=== PATIENT | male | born 1945 | race Caucasian/White ===

== ENCOUNTER 2016-12-31 10:46 | Observation (INO) | payer MEDICARE, OTHER ==
[2016-12-31] MEDS ORDERED: NITROGLYCERIN OINT 1 INCH/GM PACKET TOPICAL STA (11:14)
[2016-12-31] MEDS ORDERED: SODIUM CHLORIDE 0.9% 1,000 ML IV STA (11:14)
[2016-12-31] MEDS ORDERED: MORPHINE SULFATE 2 MG/ML SYRINGE IVP STA (11:14)
[2016-12-31 11:34] LABS: Basophils % (A) 0 %; CH 32.8; CHCM 34.4; Eosinophils # (A) 0.2 k/uL (0-0.7); Eosinophils % (A) 2 %; HCT 46.6 % (39.0-53.0); HDW 2.39; HGB 15.7 gm/dL (13.0-17.5); Luc # (Auto) 0.18; Luc % (Auto) 2; Lymphocytes # (A) 1.6 k/uL (1.0-4.8); Lymphocytes % (A) 16 %; MCH 32.2 pg (25.0-35.0); MCHC 33.6 g/dL (31.0-37.0); MCV 95.9 fL (80.0-100.0); Mean Platelet Volume 7.1; Monocytes # (A) 0.7 k/uL (0-1.0); Monocytes % (A) 7 %; Neutrophils # (A) 7.3 k/uL (1.3-7.7); Neutrophils % (A) 73 %; RBC 4.86 m/uL (4.30-5.90); RDW 12.7 % (11.5-15.5); WBC 10.1 k/uL (3.8-10.6); WBC (Perox) 10.22
[2016-12-31 11:42] LABS: ALT 62 U/L (21-72); AST 41 U/L (17-59); Alkaline Phosphatase 85 U/L (38-126); Anion Gap 10 mmol/L; Blood Urea Nitrogen 12 mg/dL (9-20); Calcium 9.3 mg/dL (8.4-10.2); Carbon Dioxide 25 mmol/L (22-30); Chloride 107 mmol/L (98-107); Glucose 85 mg/dL (74-99); Magnesium 1.9 mg/dL (1.6-2.3); Non-African American GFR(MDRD) >60 (>60 ml/min/1.73 sqM); Potassium 4.4 mmol/L (3.5-5.1); Sodium 142 mmol/L (137-145); Total Bilirubin 0.8 mg/dL (0.2-1.3); Total Protein 7.3 g/dL (6.3-8.2)
[2016-12-31 11:58] LABS: Creatine Kinase 141 U/L (55-170)
--- NOTE | 2016-12-31 11:58 | XR ---
EXAMINATION TYPE: XR chest 2V DATE OF EXAM: 12/31/2016 11:51 AM COMPARISON: Chest x-ray August 31, 2012 HISTORY: Chest pain after splitting wood injury. TECHNIQUE: Frontal and lateral views of the chest are obtained. FINDINGS: There is no focal air space opacity, pleural effusion, or pneumothorax seen. The cardiac silhouette size is within normal limits. Old fracture right lateral sixth rib is noted. IMPRESSION: No acute cardiopulmonary process.
[2016-12-31 12:11] LABS: Creatine Kinase MB 0.5 ng/mL (0.0-2.4); Troponin I <0.012 ng/mL (0.000-0.034)
[2016-12-31 12:48] LABS: INR 1.1 (<1.1)
[2016-12-31 12:49] LABS: Partial Thromboplastin Time 22.1 sec (22.0-30.0); Prothrombin Time 10.8 sec (9.0-12.0)
[2016-12-31] MEDS ORDERED: HEPARIN SODIUM,PORCINE 5,000 UNIT/ML 1 ML VIAL IV ONE (13:03)
[2016-12-31] MEDS ORDERED: MORPHINE SULFATE 2 MG/ML SYRINGE IVP PRN (13:03)
[2016-12-31] MEDS ORDERED: NITROGLYCERIN SL TABS 0.4 MG TAB SUBLINGUAL PRN (13:03)
--- NOTE | 2016-12-31 13:03 | ED ---
Chest Pain HPI - General Chief Complaint: Chest Pain Stated Complaint: Chest Pain Time Seen by Provider: 12/31/16 10:54 Source: patient, EMS Mode of arrival: EMS Limitations: no limitations - History of Present Illness Initial Comments: He was splitting some board today this morning, he felt some chest pain, it lasted for about 1 hour he took an aspirin and then took his pain away then. Then the pain returned half an hour later and he called the ambulance and ambulance [place] some nitro paste and that relieved the pain. He is chest pain -free now he has no history of heart disease in the past no chest pain or shortness of breath no pleuritic chest pain no fever no chills he is not bringing up any phlegm he does have a bit of a dry cough since [place] - Related Data Home Medications Medication Instructions Recorded Confirmed Ibuprofen [Advil] 200 mg PO HS 12/31/16 12/31/16 Loratadine [Claritin] 10 mg PO DAILY PRN 12/31/16 12/31/16 Allergies Allergy/AdvReac Type Severity Reaction Status Date / Time No Known Allergies Allergy Verified 12/31/16 11:26 Review of Systems ROS Statement: Those systems with pertinent positive or pertinent negative responses have been documented in the HPI. ROS Other: All systems not noted in ROS Statement are negative. EKG Findings - EKG Comments: EKG Findings:: EKG is normal sinus rhythm ventricular rate is 72 NM interval is 162 QRS duration is 108 QT/QTc is 380/418, review of this EKG does not show any ST elevation or ST depression Past Medical History Past Medical History: No Reported History History of Any Multi-Drug Resistant Organisms: None Reported Past Surgical History: Adenoidectomy, Joint Replacement, Orthopedic Surgery, Tonsillectomy Past Psychological History: No Psychological Hx Reported Smoking Status: Former smoker Past Alcohol Use History: None Reported Past Drug Use History: None Reported General Exam - General Exam Comments Initial Comments: General: The patient is awake and alert, in no distress, and does not appear acutely ill. Skin: Skin is warm and dry and no rashes or lesions are noted. Eye: Pupils are equal, round and reactive to light, extra-ocular movements are intact; there is normal conjunctiva bilaterally. Ears, nose, mouth and throat: There are moist mucous membranes and no oral lesions. Neck: The neck is supple, there is no tenderness or JVD. Cardiovascular: There is a regular rate and rhythm. No murmur, rub or gallop is appreciated. Respiratory: To auscultation bilateral, no wheezing no rhonchi no distress respiratory wilkinson noticed Gastrointestinal: Soft, non-distended, non-tender abdomen without masses or organomegaly noted. There is no rebound or guarding present. Bowel sounds are unremarkable. Back: There is no tenderness to palpation in the midline. There is no obvious deformity. Musculoskeletal: Normal ROM, no tenderness, There is no pedal edema. There is no calf tenderness or swelling. No cords were appreciated. Neurological: CN II-XII intact, Cranial nerves III through XII are intact. There are no obvious motor or sensory deficits. Coordination appears grossly intact. Speech is normal. Psychiatric: Cooperative, appropriate mood & affect, normal judgment. Limitations: no limitations Course Vital Signs 12/31/16 12/31/16 11:06 11:42 Temperature 98.1 F Pulse Rate 74 70 Respiratory 18 16 Rate Blood Pressure 108/68 110/69 O2 Sat by Pulse 98 Oximetry Critical Care Time Total Critical Care Time: 35 Critical Care Time: Chest pain now with exertion, chest pain got his old with fasting and aspirin but then chest pain return after he has no history of heart disease he seems like angina which turning to unstable angina and heparinize him and observe him for 24 hours and consult cardiology he be given some morphine some aspirin and some nitro may be heparinized in for further evaluation cardiology will see him Disposition Clinical Impression: Chest pain, Angina at rest Disposition: ADMITTED IP TO THIS HOSP Condition: Fair
[2016-12-31] MEDS ORDERED: LORATADINE 10 MG TAB PO PRN (13:06)
[2016-12-31] MEDS ORDERED: HEPARIN SODIUM,PORCINE/D5W PMX 25,000 UNIT in DEXTROSE/WATER 1 500ML.BAG IV SCH (13:15)
--- NOTE | 2016-12-31 18:02 | HP ---
DATE OF ADMISSION: 12/31/2016 Very pleasant 71-year-old gentleman came in ( ) today morning, the patient has epigastric and retrosternal chest pain, ( ) sensation, 4/10 in severity, nonradiating, not associated with food, nonpleuritic in nature, not associated with diaphoresis, not associated with nausea, vomiting, lightheadedness. Patient is not a smoker, never had any coronary artery disease history. The patient does have family history of coronary artery disease in mother and father in their 70s. Patient had a stress test ( ) which was essentially within normal limits. The patient's chest pain lasted for about an hour, improved with nitro paste. Denied any fever, chills. The patient's chest pain is nonpleuritic in nature, nonreproducible on exam. REVIEW OF SYSTEMS: CONSTITUTIONAL: No fever, no malaise, no fatigue. HEENT: No recent visual problems or hearing problems. Denied any sore throat. CARDIOVASCULAR: As described in history of present illness. PULMONARY: No shortness of breath, no cough, no hemoptysis. GASTROINTESTINAL: No diarrhea, no nausea, no vomiting, no abdominal pain. Normoactive bowel sounds. NEUROLOGICAL: No headaches, no weakness, no numbness. HEMATOLOGICAL: Denies any bleeding or petechiae. GENITOURINARY: Denies any burning micturition, frequency, or urgency. MUSCULOSKELETAL/RHEUMATOLOGICAL: Denies any joint pain, swelling, or any muscle pain. ENDOCRINE: Denies any polyuria or polydipsia. The rest of the 14 point review of systems is negative. PAST MEDICAL HISTORY: Significant for adenoidectomy, joint replacement surgery, multiple orthopedic surgeries, tonsillectomy and adenoidectomy. SOCIAL HISTORY: Former smoker. Quit smoking years ago. Denied any alcohol abuse or drug abuse. FAMILY HISTORY: Significant for ( ) in both mother and father. Diabetes mellitus in the family. PHYSICAL EXAMINATION: Temperature 93.1, pulse of 74. Respiratory rate of 18, blood pressure 108/63, saturating at 98% on room air. GENERAL: The patient is alert and oriented x3, not in any acute distress. Well developed, well nourished. HEENT: Pupils are round and equally reacting to light. EOMI. No scleral icterus. No conjunctival pallor. Normocephalic, atraumatic. No pharyngeal erythema. No thyromegaly. CARDIOVASCULAR: S1 and S2 present. No murmurs, rubs, or gallops. PULMONARY: Chest is clear to auscultation, no wheezing or crackles. ABDOMEN: Soft, nontender, nondistended, normoactive bowel sounds. No palpable organomegaly. MUSCULOSKELETAL: No joint swelling or deformity. EXTREMITIES: No cyanosis, clubbing, or pedal edema. NEUROLOGICAL: Gross neurological examination did not reveal any focal deficits. SKIN: No rashes. LABORATORY DATA: CBC, CMP essentially within normal limits. Troponins, EKG did not show any significant abnormalities. ( ) process. ASSESSMENT AND PLAN: 1. Chest pain, rule out acute coronary artery syndrome and unstable angina ( ) patient may need a stress test. His only risk factor is ( ) smoking history. Cardiology was consulted from ER. Continue with heparin until we get the second set of troponins. My suspicion although low but I will have a little bit of suspicion of gastroesophageal reflux disease because of the pain and also being on Advil because of which I will start him on Protonix, although his pain is completely resolved with nitro paste. 2. Seasonal allergies for which the patient is on ( ) which will be continued. Patient's primary care physician is Dr. Taylor Quinteros.
[2016-12-31 18:44] LABS: Creatine Kinase 98 U/L (55-170)
[2016-12-31 18:57] LABS: Creatine Kinase MB 0.4 ng/mL (0.0-2.4); Troponin I <0.012 ng/mL (0.000-0.034)
[2016-12-31] MEDS ORDERED: METOPROLOL TARTRATE 25 MG TAB PO SCH (21:00)
[2016-12-31] MEDS ORDERED: ATORVASTATIN 40 MG TAB PO SCH (21:00)
[2016-12-31] MEDS: PANTOPRAZOLE 40 MG/10 ML VIAL IVP SCH (21:07)
[2016-12-31] MEDS ORDERED: HEPARIN SODIUM,PORCINE 5,000 UNIT/ML 1 ML VIAL IV STA (21:09)
[2016-12-31 23:14] LABS: Creatine Kinase 89 U/L (55-170)
[2016-12-31 23:28] LABS: Creatine Kinase MB 0.4 ng/mL (0.0-2.4); Troponin I <0.012 ng/mL (0.000-0.034)
[2017-01-01 02:04] LABS: Cholesterol 160 mg/dL (<200); HDL Cholesterol 31 mg/dL (40-60); Triglycerides 153 mg/dL (<150)
[2017-01-01 07:38] VITALS: RESP 18
[2017-01-01] MEDS: PANTOPRAZOLE 40 MG/10 ML VIAL IVP SCH (08:27)
[2017-01-01] MEDS ORDERED: ASPIRIN 325 MG TAB PO SCH (09:00)
--- NOTE | 2017-01-01 10:05 | CONS ---
DATE OF CONSULTATION: Steven is a 71-year-old gentleman with no significant past medical history who came in to hospital complaining of chest pain. He states that he was splitting wood after doing that went into the house and had an episode of chest pain 4 out of 10 intensity, precordial, without definite radiation to neck, arm or back, unassociated with diaphoresis and it resolved spontaneously. He was concerned, came to the ER and got admitted. EKG does not reveal ischemic changes. There is no history of smoking, hypertension, diabetes, dyslipidemia. He ruled out for myocardial infarction. There is family history of coronary artery disease. Past medical history is negative for hypertension, diabetes, dyslipidemia. MEDICATIONS: None. ALLERGIES: None. FAMILY HISTORY: Negative for premature coronary artery disease. SOCIAL HISTORY: Negative for current smoking, EtOH abuse or drug abuse. Past surgical history is significant for tonsillectomy, adenoidectomy, joint replacement. REVIEW OF SYSTEMS: HEENT: Unremarkable. CONSTITUTIONAL: Negative. CARDIAC: As described above. PULMONARY: Negative. GI: Negative. GENITOURINARY: Negative. HEMATOLOGICAL: Negative. ONCOLOGICAL: Negative. DERMATOLOGICAL: Negative. ENDOCRINE: Negative. MUSCULOSKELETAL: Negative. On exam, patient is comfortable at rest. Vital signs are stable. There is no jugular venous distention. Carotid upstroke is normal. There is no bruit. Chest exam reveals good air entry bilaterally. Heart exam reveals first and second heart sounds. No gallop. No murmur, no rub. Abdomen is soft, nontender. Exam of the extremities did not reveal edema. Peripheral pulses are felt. Labs show a hemoglobin of 15.7, platelet count is 255. Potassium is 4.4. Creatinine is 0.9. Three sets of cardiac enzymes are negative. LDL cholesterol is 98. ASSESSMENT: Unstable angina. PLAN: Patient has new onset chest discomfort, ruled out for myocardial infarction. EKG does not reveal acute ischemic changes. I talked to patient about his treatment options including cardiac catheterization versus stress testing. Patient wishes to have a stress test and if it is abnormal go through cardiac cath. I will obtain a 2-D echo to document his LV function.
--- NOTE | 2017-01-01 11:28 | ECHOF ---
Referral Reason:CHEST PAIN MEASUREMENTS -------- HEIGHT: 182.9 cm WEIGHT: 108.0 kg BP: RVIDd: 3.4 cm (< 3.3) IVSd: 1.1 cm (0.6 - 1.1) LVIDd: 5.0 cm (3.9 - 5.3) LVPWd: 1.2 cm (0.6 - 1.1) IVSs: 1.4 cm LVIDs: 3.5 cm LVPWs: 2.0 cm LA Diam: 3.9 cm (2.7 - 3.8) Ao Diam: 4.0 cm (2.0 - 3.7) AV Cusp: 2.1 cm (1.5 - 2.6) LA Diam: 4.4 cm (2.7 - 3.8) MV EXCURSION: 22.907 mm (> 18.000) MV EF SLOPE: 75 mm/s (70 - 150) EPSS: 0.4 cm MV E Manuel: 0.66 m/s MV DecT: 188 ms MV A Manuel: 0.61 m/s MV E/A Ratio: 1.08 RAP: 5.00 mmHg RVSP: 25.99 mmHg FINDINGS -------- Sinus rhythm. This was a technically good study. There is mild concentric left ventricular hypertrophy. Overall left ventricular systolic function is low-normal with, an EF between 50 - 55 %. The right ventricle is normal in size. The left atrial size is normal. The right atrial size is normal. There is mild aortic valve sclerosis. There is no evidence of aortic regurgitation. Mild mitral annular calcification present. Mild mitral regurgitation is present. Mild tricuspid regurgitation present. There is no evidence of pulmonary hypertension. The right ventricular systolic pressure, as measured by Doppler, is 25.99mmHg. There is no pulmonic regurgitation present. The aortic root size is normal. There is no pericardial effusion. CONCLUSIONS -------- 1. There is mild concentric left ventricular hypertrophy. 2. The aortic root size is normal. 3. Overall left ventricular systolic function is low-normal with, an EF between 50 - 55 %. 4. There is mild aortic valve sclerosis. 5. Mild mitral annular calcification present. 6. Mild mitral regurgitation is present. 7. Mild tricuspid regurgitation present. 8. There is no evidence of pulmonary hypertension. 9. The right ventricular systolic pressure, as measured by Doppler, is 25.99mmHg. 10. There is no pulmonic regurgitation present. NUCLEAR MEDICINE OFFICER: Jodei Kruse RDCS
[2017-01-01 11:56] VITALS: BP 109/67; PULSE 72; TEMP 98
--- NOTE | 2017-01-01 12:37 | ECHOS ---
DATE OF SERVICE: 01/01/2017 AGE: 71Y SEX: M HT: 82 WT: 238 lbs. Protocol Aldo: X Others: Stress Echo Stage: III Dur. of Exercise: 8 minutes *Heart Rate Blood Pressure *Rest: 63 Rest: 107/71 * *Max. Achieved: 155 Maximum BP: 170/71 85% PMHR: 128 100% PMHR: 151 *METS: 10 INDICATION OF THE STUDY: Chest pain. MEDICATIONS: Claritin, Advil. STRESS DATA: Pretesting physical examination showed a heart rate of 63, pressure is 107/71 mmHg. Baseline EKG showed sinus rhythm. The patient exercised on the treadmill according to Aldo protocol for a total of 8 minutes and achieved 10 of METs. Max heart rate was 155, which is about 100% of maximum predicted heart rate. Maximum blood pressure was 170/71 mmHg. Clinically, the patient did not experience any symptoms of chest pain or discomfort and the EKG did not show any significant ST or T wave abnormalities consistent with ischemia. ECHOCARDIOGRAM IMAGES: On echocardiogram images from parasternal long axis view, parasternal short axis view, apical 4 chamber and apical 2 chambers view were obtained as the baseline images, at the peak of the heart rate, as well as on recovery. The endocardium was not well visualized on the apical view but there is no clear-cut evidence of any wall motion abnormalities consistent with ischemia. CONCLUSION: 1. Excellent exercise capacity. 2. Normal EKG in response to exercise. 3. Probably normal echocardiogram in response to exercise as well.
--- NOTE | 2017-01-02 10:01 | DS ---
DATE OF ADMISSION: 12/31/2016 DATE OF DISCHARGE: 01/01/2017 Patient is a 71-year-old who came in with chest pain, ruled out acute coronary syndrome. Patient underwent stress test which was negative which did not show any significant abnormality. The patient is being discharged today. I cannot completely rule out gastroesophageal reflux disease although significantly is not consistent with that. His symptoms completely resolved. I will give him empiric 14 days of proton pump inhibitors. Patient will follow-up with Dr. Taylor Quinteros as an outpatient. The patient was seen and examined on the day of discharge. Vital signs stable. PHYSICAL EXAMINATION: GENERAL: The patient is alert and oriented x3, not in any acute distress. Well developed, well nourished. HEENT: Pupils are round and equally reacting to light. EOMI. No scleral icterus. No conjunctival pallor. Normocephalic, atraumatic. No pharyngeal erythema. No thyromegaly. CARDIOVASCULAR: S1 and S2 present. No murmurs, rubs, or gallops. PULMONARY: Chest is clear to auscultation, no wheezing or crackles. ABDOMEN: Soft, nontender, nondistended, normoactive bowel sounds. No palpable organomegaly. MUSCULOSKELETAL: No joint swelling or deformity. EXTREMITIES: No cyanosis, clubbing, or pedal edema. NEUROLOGICAL: Gross neurological examination did not reveal any focal deficits. SKIN: No rashes. Discharge diet is regular. Activity as tolerated. Patient will follow with Dr. Quinteros in 3 to 7 days.
== END 2017-01-01 15:20 | disposition home or self-care (01) ==
LOC: EC 10:46 → 3OBS 13:03
PROVIDERS: ADMIT Internal Medicine; ATTEND Internal Medicine
DX: R07.89 Other chest pain (principal); R07.2 Precordial pain; R10.13 Epigastric pain; J30.2 Other seasonal allergic rhinitis; Z79.1 Long term (current) use of non-steroidal anti-inflammatories (NSAID); Z87.891 Personal history of nicotine dependence; Z82.49 Family history of ischemic heart disease and other diseases of the circulatory system
CPT/HCPCS: 96361 ×4; 96376 ×4; 99291; 96366 ×2; 96375; 96365; 36415; 93005; 93017; 93306; 93350; 83880; 80061; 80053; 82550; 82553; 83735; 84484; 85025; 85610; 85730 ×2; 71020; G0378 ×2; J1644 ×2; C9113 ×2

== ENCOUNTER → 2021-01-17 | Outpatient (CLI) | payer MEDICARE, OTHER ==
[2021-01-17 10:55] LABS: HCT 44.1 % (39.0-53.0); HGB 14.9 gm/dL (13.0-17.5); MCH 32.4 pg (25.0-35.0); MCHC 33.7 g/dL (31.0-37.0); MCV 96.1 fL (80.0-100.0); Mean Platelet Volume 6.8; Platelet Count 264 k/uL (150-450); RBC 4.59 m/uL (4.30-5.90); RDW 12.3 % (11.5-15.5); WBC 6.2 k/uL (3.8-10.6)
[2021-01-17 11:00] LABS: Appearance,Urine Clear (Clear); Bilirubin,Urine Negative (Negative); Blood,Urine Negative (Negative); Color,Urine Yellow; Glucose,Urine (UA) Negative (Negative); Ketones,Urine Negative (Negative); Leukocyte Esterase,Urine Negative (Negative); Nitrite,Urine Negative (Negative); Protein,Urine Negative (Negative); Specific Gravity,Urine 1.013 (1.001-1.035); Urobilinogen,Urine <2.0 mg/dL (<2.0)
[2021-01-17 11:04] LABS: Partial Thromboplastin Time 22.6 sec (22.0-30.0); Prothrombin Time 10.4 sec (9.0-12.0)
[2021-01-17 12:00] LABS: ALT 36 U/L (4-49); AST 40 U/L (17-59); African American GFR (CKD) >90 (>60 ml/min/1.73 sqM); Albumin 3.7 g/dL (3.5-5.0); Alkaline Phosphatase 82 U/L (38-126); Anion Gap 9 mmol/L; Blood Urea Nitrogen 11 mg/dL (9-20); Calcium 9.1 mg/dL (8.4-10.2); Carbon Dioxide 24 mmol/L (22-30); Chloride 106 mmol/L (98-107); Glucose 97 mg/dL (74-99); Non-African American GFR(CKD) 79 (>60 ml/min/1.73 sqM); Potassium 4.5 mmol/L (3.5-5.1); Sodium 139 mmol/L (137-145); Total Bilirubin 0.5 mg/dL (0.2-1.3); Total Protein 6.8 g/dL (6.3-8.2)
== END | disposition home or self-care (01) ==
LOC: LABPAT 10:19
PROVIDERS: ATTEND Orthopaedic Surgery
DX: Z01.818 Encounter for other preprocedural examination (principal); M16.12 Unilateral primary osteoarthritis, left hip; Z79.01 Long term (current) use of anticoagulants; Z01.812 Encounter for preprocedural laboratory examination
CPT/HCPCS: 80053; 81003; 85027; 85610; 85730; 87070

== ENCOUNTER 2021-01-27 13:03 | Day surgery (SDC) | payer MEDICARE, OTHER ==
[2021-01-21 11:42] VITALS: BMI 29.5
[~2021-01-27 13:03] MED LIST: ACETAMINOPHEN TAB 500 MG TAB PO PRN; DEXAMETHASONE SOD PHOSPHATE 4 MG/ML 1 ML VIAL IV ONE; GABAPENTIN 300 MG CAP PO PRN; HYDROmorphone 0.5 MG/0.5 ML SYRINGE IVP PRN; LIDOCAINE 1% (10MG/ML) FOR IV START INTRADERMA PRN; MELOXICAM 7.5 MG TAB PO PRN; MIDAZOLAM 2 MG/2 ML VIAL IV PRN; ONDANSETRON 4 MG/2 ML VIAL IVP ONE; ROPIVACAINE/EPI/CLONIDINE/KET 50 ML SYRINGE MISCELLANE PRN; TRANEXAMIC ACID 1,000 MG in SODIUM CHLORIDE 0.9% 100 ML IVPB PRN
[2021-01-27] MEDS: LACTATED RINGERS 1,000 ML IV SCH ×2 (13:17→13:45)
[2021-01-27] MEDS ORDERED: HYDROmorphone 0.5 MG/0.5 ML SYRINGE IVP PRN ×2 (14:17)
[2021-01-27] MEDS ORDERED: ONDANSETRON 4 MG/2 ML VIAL IVP PRN (14:17)
[2021-01-27] MEDS ORDERED: HYDROmorphone 0.2 MG/1 ML SYRINGE IVP PRN (14:17)
[2021-01-27] MEDS ORDERED: MAGNESIUM HYDROXIDE 2,400 MG/10 ML CUP PO PRN (14:17)
[2021-01-27] MEDS ORDERED: HYDROcodone/APAP 5-325MG 1 EACH TAB PO PRN ×2 (14:17)
[2021-01-27] MEDS ORDERED: NALOXONE 0.4 MG/ML 1 ML VIAL IV PRN (14:17)
--- NOTE | 2021-01-27 15:58 | P.OP ---
Date of Procedure: 01/27/21 Preoperative Diagnosis: Severe osteoarthritis left hip Postoperative Diagnosis: Severe osteoarthritis left hip Procedure(s) Performed: Left total hip arthroplasty with a direct anterior approach Implants: [employer] Polarstem standard size 7 [employer] R3, 3 hole hemispherical acetabular shell, 58 mm [employer] Reflection 6.5 mm cancellus screw, 25 mm 2 [employer] R3, XLPE 20 acetabular liner [employer]hew Oxinium femoral head 36 m, +8 All components were press-fit. The articulation is Oxinium on polyethylene. Anesthesia: GETA Surgeon: Mark Goss Administration Professional #1: Brenda Burgess Estimated Blood Loss (ml): 800 (273 mL returned with Cell Saver) Pathology: other (Femoral head) Condition: stable Disposition: PACU Indications for Procedure: After failure of conservative treatment we discussed the surgical and nonsurgical treatment options at length. Patient wishes to proceed with a total hip arthroplasty with a direct anterior approach. Complications specific to this procedure were discussed at length, including but not limited to infection, leg length discrepancy, dislocation, nerve injury, and fracture. Covid-19 was also discussed at length with the patient, and they are aware of the current policies and procedures. The patient was given the option of delaying surgery, but they elect to proceed knowing these risks. Patient is aware of all these complications and informed consent was obtained Operative Findings: Operative findings are consistent with severe osteoarthritis of the left hip Description of Procedure: Patient was seen and evaluated in the preoperative area and the consent was reviewed. The operative site was marked with a skin marker. The patient was then brought to the operating room and given preoperative antibiotics intravenously. 1 g of Tranexamic acid was also given intravenously. A general anesthetic was administered by the anesthesia department. The patient was then placed on the Baxter table with the bony prominences well-padded. The hip area was then prepped with a ChloraPrep solution and draped in the usual sterile fashion. A universal timeout was then performed, which confirmed the patient's name, surgical site, ALLERGIES, and procedure being performed on the consent. Next the incision site was located at 1 cm distal to the anterior superior iliac spine along the flexion crease of the left hip. The skin and subcutaneous tissues were sharply incised. Incision was carefully dissected down to the fascia overlying the tensor fascia benoit muscle. This fascia was then incised in line with the incision. Care was taken to stay laterally in order to avoid injuring the lateral femoral cutaneous nerve. Next, using blunt finger dissection, the tensor fascia benoit muscle was dissected off its investing fascia. The muscle was then carefully retracted laterally with a cobra retractor over the lateral neck of the femur. Next, the circumflex vessels were identified and cauterized using the AquaMantis device. The anterior hip capsule was then exposed. The capsule was then opened and an inverted T fashion. Cobra retractors were then placed intracapsularly. The retractors were maintained intracapsular throughout the procedure. The proximal femur was then visualized. A small amount of traction was placed on the leg. The femoral neck was then osteotomized appropriate level above the lesser trochanter. A small wedge of bone was then removed from the remaining femoral head. Next, using a corkscrew the femoral head was removed from the acetabulum. On gross visual inspection, the femoral head had complete loss of articular cartilage and multiple periarticular osteophytes. The femoral head was then measured. Attention was then turned to the acetabulum. The acetabulum was exposed and any remaining labrum was excised. Sequential reaming of the acetabulum was performed using fluoroscopic guidance until there was a good bed of bleeding cancellus bone. When the appropriate size was reached, a trial was then placed. The position and fit of the trial was checked with fluoroscopy. The trial was then removed. Then, using fluoroscopic guidance, the final implant was impacted at 20 of anteversion and 40 of abduction, and fully seated in the acetabulum. 2 screws were then placed in the acetabulum. Again fluoroscopy was used to check position of the screws. Next, the liner was then impacted, with a 20 elevated liner located in the anterior superior quadrant. Component locking was confirmed. Attention was then directed to the femur. With the aid of the Baxter table, the femur was externally rotated to approximately 130, extended, and adducted under the opposite leg. A side hook was then placed under the proximal femur, and the side hook elevator was used to elevate the proximal femur while releasing the capsule. Retractors were then placed. A capsular release was performed, as well as a release of the conjoined tendon, which afforded excellent visualization of the proximal femur. Next, a box osteotome was used to lateralize the proximal femur. A food crops farm hand was then used to locate the femoral canal. Sequential broaching was then performed with appropriate size which afforded excellent fixation in the proximal femur. A trial was then placed with appropriate head and neck, and the hip was gently reduced with the aid of the Baxter table. Fluoroscopy was then used to check position of the components, as well as to ensure equal leg lengths. The hip was then gently dislocated and the trials were then removed. Final implants were then impacted and the hip was again reduced. Final fluoroscopic x-rays confirmed that the components were in anatomic position, as well as equal leg lengths. The hip was also taken through range of motion, and found to be stable. The hip was then copiously irrigated with antibiotic solution with pulsatile lavage. The hip was then irrigated with Irrisept solution. The soft tissues were then injected with a ropivacaine solution, which consisted of 246.25 mg of ropivacaine, 0.5 mg of epinephrine, 30 mg of Toradol, 80 g of clonidine, and 48.45 mL of sterile water, for a total of 100 mL of fluid injected. A second dose of 1 g of Tranexamic acid was also given intravenously. Any blood collected by Cell Saver was then returned to the patient at this time. The fascia was then closed with 2-0 strata fix suture. The subcutaneous tissue was closed with 3-0 Vicryl. The subcuticular tissue was closed with 3-0 strata fix suture. The skin was then closed with Exofin skin glue. After the glue and dried, and Optifoam silver impregnated dressing was applied. The patient was then transferred to the recovery room in stable condition. The server assistant LELO Jacobs was required due to the complexity of surgery, and the need for skilled research assistant professor for positioning, draping, exposure, retraction, and closure of the wound.
--- NOTE | 2021-01-27 16:56 | XR ---
Study: X-ray of the left hip. 01/27/2021 4:35 PM. No prior similar imaging is available for comparison at this time. FINDINGS: Images demonstrate total left hip arthroplasty with femoral and acetabular components in usual alignm ent. Subcutaneous emphysema represent usual postoperative change. No acute fracture or dislocation is seen. IMPRESSION: Total left hip arthroplasty with usual postoperative changes.
[2021-01-27] MEDS ORDERED: LACTATED RINGERS 1,000 ML IV ONE (17:12)
[2021-01-27] MEDS: SODIUM CHLORIDE 0.9% 1,000 ML IV SCH (20:23)
[2021-01-27] MEDS: APIXABAN 2.5 MG TABLET PO SCH (20:28)
[2021-01-27] MEDS: PANTOPRAZOLE 40 MG TABLET PO SCH (20:28)
[2021-01-27] MEDS ORDERED: SENNOSIDES-DOCUSATE SODIUM 1 EACH TAB PO SCH (21:00)
--- NOTE | 2021-01-27 21:32 | CONS ---
CONSULTATION DATE OF SERVICE: 01/27/2021. REASON FOR CONSULTATION: Advice regarding DVT and other medical issues, requested by Dr. Goss. HISTORY OF PRESENT ILLNESS: This 75-year-old gentleman with a past medical history of DVT, history of sinus problems, right leg DVT, celiac gluten free diet, hemorrhoids, being followed by Dr. Minaya in the outpatient setting, was admitted after left total hip joint arthroplasty by Dr. Goss. The patient is sedated currently. There is no history of chest pain. No history of palpitations. No headache, loss of consciousness or seizures. No nausea or vomiting, fever, rigors or chills at this time. PAST MEDICAL HISTORY: History of DVT, history of sinus problems, right leg DVT, anemia, celiac disease. MEDICATIONS: Home medications are: Ibuprofen and Tylenol. ALLERGIES: None. FAMILY HISTORY: History of CHF, diabetes mellitus in the family. SOCIAL HISTORY: Previous history of smoking. Occasional alcohol. REVIEW OF SYSTEMS: Could not be taken, the patient is drowsy. PHYSICAL EXAMINATION: Pulse is 79. Blood pressure 119/80, respirations 16, temperature 97 degrees, pulse ox 93% on room air. HEENT: Conjunctivae normal. Oral mucosa moist. NECK is no jugular venous distention. No carotid bruit. No lymph node enlargement. CARDIOVASCULAR system: S1, S2 muffled. RESPIRATIONS: Breath sounds diminished in the bases. No rhonchi. No crackles. ABDOMEN: Soft, nontender. LEGS: Status post left hip arthroplasty NERVOUS SYSTEM: Full exam not possible because the patient is sedated. SKIN: No ulcers, rashes or bleeding. JOINTS as mentioned earlier. LYMPHATICS: No lymph nodes palpable in the neck, axillae or groin. LABORATORY DATA: Preoperative labs within normal limits. ASSESSMENT: 1. Status post left total hip joint arthroplasty. 2. History of deep vein thrombosis. 3. History of sinus problems. 4. History of anemia. 5. History of celiac disease. 6. History of hemorrhoids. 7. History of adenoidectomy. 8. History of degenerative joint disease. 9. Remote history of nicotine dependence. 10.FULL CODE. RECOMMENDATIONS AND DISCUSSION: In this 75-year-old gentleman who presented with multiple medical issues, at this time, I recommend to continue current medications, management and symptomatic treatment. Otherwise, DVT prophylaxis. The patient is started on Eliquis, add proton pump inhibitors and incentive spirometry. We will follow the patient closely with you and patient may be asked to follow up with a primary physician closely after discharge. Thank you Dr. Goss, for letting us participate in the care of this patient. MMODL / IJN: [id number] /
[2021-01-28] MEDS: LACTATED RINGERS 1,000 ML IV SCH (00:10)
[2021-01-28] MEDS: SODIUM CHLORIDE 0.9% 1,000 ML IV SCH (05:13)
--- NOTE | 2021-01-28 06:31 | FL ---
EXAMINATION TYPE: FL guidance operating room, XR Hip Complete LT DATE OF EXAM: 01/27/2021 CLINICAL HISTORY: Left hip pain and osteoarthritis. TECHNIQUE: Fluoroscopy. Intraoperative 2 views left hip. COMPARISON: None. FINDINGS: Fluoroscopic guidance was provided during left hip replacement procedure performed by Dr. Goss. A total of 50 seconds of fluoroscopic time was utilized during the procedure and 2 spot in traoperative images are acquired. Intraoperative images obtained show metallic hardware from total hip arthroplasty satisfactory in pos ition on frontal projection. IMPRESSION: As Above.
[2021-01-28] MEDS: APIXABAN 2.5 MG TABLET PO SCH (07:28)
[2021-01-28] MEDS: PANTOPRAZOLE 40 MG TABLET PO SCH (07:28)
[2021-01-28 07:30] VITALS: BP 95/51; PULSE 72; RESP 18; TEMP 97.5
[2021-01-28 08:36] LABS: Basophils # (A) 0.02 X 10*3/uL (0.00-0.10); Basophils % (A) 0.1 %; Eosinophils # (A) 0 X 10*3/uL (0.04-0.35); Eosinophils % (A) 0 %; HCT 36.6 % (39.6-50.0); HGB 12.1 g/dL (13.0-17.0); Lymphocytes % (A) 6.2 %; MCH 31.8 pg (27.0-32.0); MCHC 33.1 g/dL (32.0-37.0); MCV 96.3 fL (80.0-97.0); Mean Platelet Volume 9.7 fL (9.5-12.2); Monocytes # (A) 1.05 X 10*3/uL (0.20-1.00); Monocytes % (A) 6.6 %; Neutrophils # (A) 13.87 X 10*3/uL (1.80-7.70); Neutrophils % (A) 86.6 %; Platelet Count 240 X 10*3/uL (140-440); RDW 12.5 % (11.5-14.5); WBC 16.02 X 10*3/uL (4.50-10.00)
--- NOTE | 2021-01-28 09:15 | P.DS ---
Providers Expected date of discharge: 01/28/21 Attending physician: Mark Goss Consults: 01/27/21 14:17 Consult Physician Routine Consulting Provider: Zainab Izaguirre Consult Reason/Comments: medical management Do you want consulting provider notified?: Yes Primary care physician: [facility] - Discharge Diagnosis(es) (1) Osteoarthritis of left hip Current Visit: Yes Status: Acute (2) S/P total hip arthroplasty Current Visit: Yes Status: Acute Hospital Course: This is a 75-year-old male with known history of degenerative arthritis of the left hip. The patient presented for evaluation as an outpatient. After discussion and consideration patient elects to proceed with total hip arthroplasty. The patient is seen preoperatively by Dr. Goss and medically cleared for surgery by their primary care physician. Patient is admitted to [facility] on 01/27/2021 for total hip arthroplasty. The procedure is performed without complication or sequelae. The patient is doing well postoperatively. Labs and vital signs are stable on day of discharge. On day of discharge patient's hip incision is healing well. There is minimal erythema. There is no drainage noted at this time. There is minimal soft tissue swelling to the hip and thigh. Patient has full foot and ankle motion without difficulty or pain. Calf is soft and nontender to palpation. Neurovascular status to the left lower extremity is intact. Patient is discharged home in good condition. Opioid start talking form is reviewed and signed. Please see med rec for accurate list of home medications. Plan - Discharge Summary Discharge Rx Participant: No New Discharge Prescriptions: New Apixaban [Eliquis] 2.5 mg PO BID 35 Days #70 tab HYDROcodone/APAP 5-325MG [[place] 5-325] 1 - 2 tab PO Q6HR PRN #48 tab PRN Reason: Pain Sennosides [Senokot] 2 tab PO DAILY PRN #60 tablet PRN Reason: Constipation No Action Ibuprofen [Advil] 200 mg PO HS Acetaminophen Tab [Tylenol] 650 mg PO Q4H PRN PRN Reason: Pain Discharge Medication List Ibuprofen [Advil] 200 mg PO HS 12/31/16 [History] Acetaminophen Tab [Tylenol] 650 mg PO Q4H PRN 01/21/21 [History] Apixaban [Eliquis] 2.5 mg PO BID 35 Days #70 tab 01/28/21 [Rx] HYDROcodone/APAP 5-325MG [[place] 5-325] 1 - 2 tab PO Q6HR PRN #48 tab 01/28/21 [Rx] Sennosides [Senokot] 2 tab PO DAILY PRN #60 tablet 01/28/21 [Rx] Follow up Appointment(s)/Referral(s): Mark Goss DO [Doctor of Osteopathic Medicine] - 2 Weeks Activity/Diet/Wound Care/Special Instructions: Weightbearing as tolerated with walker. Leave dressing intact. Dressing may be removed by home care nurse or by patient in 10 days. May shower with dressing on. Please take Eliquis 2.5 mg twice daily for 35 days to help prevent blood clots. Recommend use of compression stockings daily until follow up to help prevent swelling and blood clots. May remove at night before sleeping. Please follow-up with [facility] in 2 weeks and call with any questions or concerns, . Discharge Disposition: HOME WITH HOME HEALTH SERVICES
--- NOTE | 2021-01-28 14:57 | PN ---
PROGRESS NOTE DATE OF SERVICE: 01/28/2021 This 75-year-old gentleman who was admitted after left total hip joint arthroplasty improving significantly. No chest pain. No palpitations. No fever. PHYSICAL EXAMINATION: Alert and orient x3. Pulse is 72, blood pressure 95/51, respiration 18, temperature 97.5, pulse ox 94% on room air. HEENT: Conjunctivae normal. NECK: No jugular venous distention. CARDIOVASCULAR: S1, S2 muffled. RESPIRATORY: Breath sounds diminished at the bases. No rhonchi. ABDOMEN: Soft, nontender. LEGS: Status left hip arthroplasty. LABS: WBC 16.02, hemoglobin 12.1. ASSESSMENT: 1. Status post left total hip joint arthroplasty. 2. History of deep vein thrombosis. 3. History of sinus problems. 4. History of anemia. 5. History of celiac disease. 6. History of hemorrhoids. 7. History of adenoidectomy. 8. History of degenerative joint disease. 9. Remote history of nicotine dependence. 10.FULL CODE. RECOMMENDATIONS AND DISCUSSION: Recommend to continue current medications, continue symptomatic treatment. Otherwise I would recommend Eliquis for next 35 days per orthopedic recommendations. Follow up with primary physician in the outpatient setting and rest of the recommendations per Orthopedic Surgery. MMODL / IJN: [id number] /
== END 2021-01-28 13:41 | disposition home health service (06) ==
LOC: OR 13:03 → 4SSUR 17:02 → OR 01-28 13:41
PROVIDERS: ATTEND Orthopaedic Surgery
DX: M16.12 Unilateral primary osteoarthritis, left hip (principal); K90.0 Celiac disease; Z91.02 Food additives allergy status; Z87.891 Personal history of nicotine dependence; K21.9 Gastro-esophageal reflux disease without esophagitis; N52.9 Male erectile dysfunction, unspecified; E03.9 Hypothyroidism, unspecified; Z98.890 Other specified postprocedural states; Z97.3 Presence of spectacles and contact lenses; Z86.718 Personal history of other venous thrombosis and embolism; Z90.89 Acquired absence of other organs; Z83.3 Family history of diabetes mellitus; J30.9 Allergic rhinitis, unspecified; Z79.1 Long term (current) use of non-steroidal anti-inflammatories (NSAID)
CPT/HCPCS: 97110; 97161; 97535; 97165; 86891; 85025; 88300; 73501; 73502; 27130; C1776; J1100; J0690 ×2; J2405; 86850; 86900; 86901

== ENCOUNTER 2021-03-06 10:23 | Emergency (ER) | payer MEDICARE, OTHER ==
[2021-03-06 10:29] VITALS: BP 147/95; PULSE 67; RESP 18; TEMP 97
--- NOTE | 2021-03-06 10:34 | ED ---
General Adult HPI - General Chief complaint: Extremity Problem,Nontraumatic Stated complaint: Hip pain Time Seen by Provider: 03/06/21 10:24 Source: patient, EMS, RN notes reviewed Mode of arrival: EMS Limitations: no limitations - History of Present Illness Initial comments: Patient is a pleasant 75-year-old male presenting to the emergency Department with complaints of right-sided hip discomfort. Onset of symptoms was yesterday. Symptoms have been waxing and waning. Discomfort is mild at this time. Patient does have history of somewhat similar symptoms previously and his right ankle that was associated with DVT. Patient did have recent left hip replacement several weeks ago. No chest pain or dyspnea. No color change or fever. No warmth. Discomfort does increase at times with movement. Patient is currently doing physical therapy and states symptoms were worse during that. - Related Data Home Medications Medication Instructions Recorded Confirmed Ibuprofen [Advil] 200 mg PO HS 12/31/16 01/27/21 Acetaminophen Tab [Tylenol] 650 mg PO Q4H PRN 01/21/21 01/27/21 Previous Rx's Medication Instructions Recorded Apixaban [Eliquis] 2.5 mg PO BID 35 Days #70 tab 01/28/21 HYDROcodone/APAP 5-325MG [[place] 1 - 2 tab PO Q6HR PRN #48 tab 01/28/21 5-325] Sennosides [Senokot] 2 tab PO DAILY PRN #60 tablet 01/28/21 Apixaban [Eliquis Starter Pack 0 mg PO DIRECTED 30 Days #1 pack 03/06/21 (for VTE)] Allergies Allergy/AdvReac Type Severity Reaction Status Date / Time No Known Allergies Allergy Verified 01/27/21 13:31 Review of Systems ROS Statement: Those systems with pertinent positive or pertinent negative responses have been documented in the HPI. ROS Other: All systems not noted in ROS Statement are negative. Constitutional: Denies: fever Eyes: Denies: eye pain ENT: Denies: ear pain Respiratory: Denies: cough, dyspnea Cardiovascular: Denies: chest pain Endocrine: Denies: fatigue Gastrointestinal: Denies: abdominal pain Genitourinary: Denies: dysuria Musculoskeletal: Reports: as per HPI. Denies: back pain Skin: Denies: rash Neurological: Denies: headache Past Medical History Past Medical History: Deep Vein Thrombosis (DVT) Additional Past Medical History / Comment(s): Sinus problems, R leg DVT in 2004, anemia-2006 tx with iron, celiac disease-gluten free diet, hemorrhoids. History of Any Multi-Drug Resistant Organisms: None Reported Past Surgical History: Adenoidectomy, Joint Replacement, Orthopedic Surgery, Tonsillectomy Additional Past Surgical History / Comment(s): Bilateral total knee arthroplasty, numerous bilateral knee arthroscopies, R ankle fx with surgery/metal, colonoscopies with biopsies, circumcism. Left hip replacement 2020 Past Anesthesia/Blood Transfusion Reactions: No Reported Reaction Past Psychological History: No Psychological Hx Reported Smoking Status: Former smoker Past Alcohol Use History: Occasional Past Drug Use History: None Reported - Past Family History Mother Family Medical History: Congestive Heart Failure (CHF), Diabetes Mellitus Additional Family Medical History / Comment(s): Mother developed diabetes later in life and of CHF in her late 70's. General Exam Limitations: no limitations General appearance: alert, in no apparent distress Head exam: Present: normocephalic Eye exam: Present: normal appearance Respiratory exam: Present: normal lung sounds bilaterally Cardiovascular Exam: Present: regular rate, normal rhythm Expanded Peripheral pulses: 2+: Femoral (R), Dorsalis Pedis (R) GI/Abdominal exam: Present: soft. Absent: tenderness Extremities exam: Present: tenderness (Mild tenderness right anterior and lateral hip region), other (No swelling or warmth or erythema). Absent: pedal edema, calf tenderness Neurological exam: Present: alert. Absent: motor sensory deficit Psychiatric exam: Present: normal affect, normal mood Skin exam: Present: normal color Course Vital Signs 03/06/21 10:24 Temperature 97 F L Pulse Rate 67 Respiratory 18 Rate Blood Pressure 147/95 O2 Sat by Pulse 97 Oximetry Medical Decision Making - Medical Decision Making Patient reevaluated and updated. Patient was on Eliquis following his surgery however has been off this for the past week. Patient was on a for approximately one month. Case was discussed with Dr. Tristan covering for this. Patient who does agree with Eliquis starter pack and patient can be discharged. - Radiology Data Radiology results: report reviewed (Ultrasound shows acute DVT right proximal calf pain.), image reviewed Disposition Clinical Impression: Deep vein thrombosis (DVT) of lower extremity Disposition: HOME SELF-CARE Condition: Stable Instructions (If sedation given, give patient instructions): Deep Vein Thrombosis (ED) Additional Instructions: Please follow-up with primary care physician in the next couple days for recheck. Please also follow-up with your orthopedic doctor. Return for any chest pain or difficulty in breathing, increased leg pain or swelling, fevers, worsening symptoms or other concerns. Prescription for Eliquis has been sent to our pharmacy that you do need to picking supervisor and start tonight. Is patient prescribed a controlled substance at d/c from ED?: No Referrals: [facility],Clinic [Primary Care Provider] - 1-2 days Time of Disposition: 11:46
--- NOTE | 2021-03-06 11:15 | US ---
EXAMINATION TYPE: US venous doppler duplex LE RT DATE OF EXAM: 03/06/2021 11:03 AM COMPARISON: NONE CLINICAL HISTORY: pain. Right leg pain x couple days SIDE PERFORMED: Right TECHNIQUE: The lower extremity deep venous system is examined utilizing real time linear array sonog loraine with graded compression, doppler sonography and color-flow sonography. VESSELS IMAGED: Common Femoral Vein Deep Femoral Vein Greater Saphenous Vein * Femoral Vein Popliteal Vein Small Saphenous Vein * Proximal Calf Veins (* superficial vessels) Right Leg: Appears positive for DVT anterior proximal calf vein, also unable to fully compress dista l femoral vein and proximal popliteal vein , this felt due to deeper location. Satisfactory color elsa w noted. Grayscale, color doppler, spectral doppler imaging performed of the deep veins of the right lower ext remity. IMPRESSION: Acute DVT is present below the knee in the anterior proximal calf vein.
[2021-03-06] MEDS ORDERED: ACETAMINOPHEN TAB 500 MG TAB PO STA (11:44)
[2021-03-06] MEDS ORDERED: APIXABAN 5 MG TAB PO STA (11:44)
--- NOTE | 2021-03-06 11:50 | XR ---
EXAMINATION TYPE: XR Hip RT and AP Pelvis DATE OF EXAM: 03/06/2021 COMPARISON: NONE HISTORY: Pain with movement. TECHNIQUE: A single AP view of the pelvis is obtained. Two views of the right hip are obtained. FINDINGS: There is no acute fracture/dislocation evident in the pelvis. Left sacroiliac joint shows asymmetric narrowing and sclerosis. Pubic symphysis is intact. Metallic artifact from total left hip arthroplasty is partially imaged. The overlying soft tissue appears unremarkable. Two views of right hip show no acute fracture or dislocation. No focal lytic or sclerotic lesion see n in the proximal right femur. Right hip joint space fairly well maintained The overlying soft tissue is unremarkable. IMPRESSION: As above.
== END 2021-03-06 14:19 | disposition home or self-care (01) ==
LOC: EC 10:23
DX: I82.401 Acute embolism and thrombosis of unspecified deep veins of right lower extremity (principal); Z87.891 Personal history of nicotine dependence; Z87.19 Personal history of other diseases of the digestive system; Z96.642 Presence of left artificial hip joint; Z90.09 Acquired absence of other part of head and neck; Z96.653 Presence of artificial knee joint, bilateral; Z79.01 Long term (current) use of anticoagulants
CPT/HCPCS: 73502; 99284

== ENCOUNTER 2021-03-06 22:53 | Emergency (ER) | payer MEDICARE, OTHER ==
[2021-03-06 23:01] VITALS: TEMP 98
[2021-03-07] MEDS ORDERED: MORPHINE SULFATE 4 MG/ML SYRINGE IV STA (00:05)
--- NOTE | 2021-03-07 00:13 | ED ---
Extremity Problem HPI - General Chief complaint: Extremity Problem,Nontraumatic Stated complaint: Hip Pain Time Seen by Provider: 03/06/21 23:56 Source: EMS Mode of arrival: EMS Limitations: no limitations - History of Present Illness MD Complaint: extremity pain, extremity swelling Onset/Timin -: days(s) Location: right, lower extremity -: Yes myalgia Radiation: none Quality: aching Consistency: constant Improves with: nothing Worsens with: nothing - Related Data Home Medications Medication Instructions Recorded Confirmed Cetirizine HCl [Zyrtec] 10 mg PO HS 03/06/21 03/06/21 Previous Rx's Medication Instructions Recorded Apixaban [Eliquis Starter Pack 0 mg PO DIRECTED 30 Days #1 pack 03/06/21 (for VTE)] HYDROcodone/APAP 5-325MG [[place] 1 tab PO Q4HR PRN 3 Days #18 tab 03/07/21 5-325] Allergies Allergy/AdvReac Type Severity Reaction Status Date / Time No Known Allergies Allergy Verified 03/06/21 23:01 Review of Systems ROS Statement: Those systems with pertinent positive or pertinent negative responses have been documented in the HPI. ROS Other: All systems not noted in ROS Statement are negative. Constitutional: Denies: fever, chills Respiratory: Denies: cough, dyspnea Cardiovascular: Denies: chest pain, palpitations, edema, syncope Gastrointestinal: Denies: abdominal pain, vomiting, diarrhea Genitourinary: Denies: dysuria, hematuria Musculoskeletal: Reports: as per HPI, myalgia Skin: Denies: rash Neurological: Denies: headache, weakness, numbness Past Medical History Past Medical History: Deep Vein Thrombosis (DVT) Additional Past Medical History / Comment(s): Sinus problems, R leg DVT in 2004, anemia-2006 tx with iron, celiac disease-gluten free diet, hemorrhoids. History of Any Multi-Drug Resistant Organisms: None Reported Past Surgical History: Adenoidectomy, Joint Replacement, Orthopedic Surgery, Tonsillectomy Additional Past Surgical History / Comment(s): Bilateral total knee arthroplasty, numerous bilateral knee arthroscopies, R ankle fx with surgery/metal, colonoscopies with biopsies, circumcism. Left hip replacement 2020 Past Anesthesia/Blood Transfusion Reactions: No Reported Reaction Past Psychological History: No Psychological Hx Reported Smoking Status: Former smoker Past Alcohol Use History: Occasional Past Drug Use History: None Reported - Past Family History Mother Family Medical History: Congestive Heart Failure (CHF), Diabetes Mellitus Additional Family Medical History / Comment(s): Mother developed diabetes later in life and of CHF in her late 70's. General Exam Limitations: no limitations General appearance: alert, in no apparent distress Head exam: Present: atraumatic, normocephalic Eye exam: Present: normal appearance. Absent: scleral icterus, conjunctival injection Neck exam: Present: normal inspection Respiratory exam: Present: normal lung sounds bilaterally. Absent: respiratory distress, wheezes, rales, rhonchi, stridor Cardiovascular Exam: Present: regular rate, normal rhythm, normal heart sounds. Absent: systolic murmur, diastolic murmur, rubs, gallop GI/Abdominal exam: Present: soft. Absent: distended, tenderness, guarding, rebound, rigid Extremities exam: Present: normal inspection, tenderness, normal capillary refill. Absent: calf tenderness Back exam: Present: normal inspection. Absent: CVA tenderness (R), CVA tenderness (L) Neurological exam: Present: alert. Absent: motor sensory deficit Skin exam: Present: warm, dry, intact, normal color. Absent: rash Course Vital Signs 03/06/21 03/07/21 03/07/21 22:54 01:57 03:50 Temperature 98 F Pulse Rate 63 68 71 Respiratory 17 16 18 Rate Blood Pressure 134/70 129/74 133/76 O2 Sat by Pulse 96 97 98 Oximetry Medical Decision Making - Medical Decision Making 's patient is 75-year-old man presenting for complaint of pain to the anterior portion of the upper part of the right leg. Basically to the anterior right thigh approaching the groin. He states that this had started with his physical therapy on Wednesday and has been continuing intermittently since then. Patient states that the pain is very similar to what he experienced with a previous DVT near his ankle. The patient was seen here earlier today had an ultrasound and was diagnosed with DVT of the right lower leg and possibly also femoral vein, but this was not definitively seen in the femoral vein. Patient denies chest pain, dyspnea, hemoptysis, palpitations, or lightheadedness. He has started the Xarelto treatment. - Lab Data Result diagrams: 03/07/21 00:28 03/07/21 00:28 Lab Results 03/07/21 03/07/21 Range/Units 00:28 00:28 WBC 8.9 (3.8-10.6) k/uL RBC 3.89 L (4.30-5.90) m/uL Hgb 12.7 L (13.0-17.5) gm/dL Hct 36.8 L (39.0-53.0) % MCV 94.6 (80.0-100.0) fL MCH 32.6 (25.0-35.0) pg MCHC 34.4 (31.0-37.0) g/dL RDW 12.5 (11.5-15.5) % Plt Count 260 (150-450) k/uL MPV 7.1 Neutrophils % 83 % Lymphocytes % 11 % Monocytes % 5 % Eosinophils % 1 % Basophils % 0 % Neutrophils # 7.3 (1.3-7.7) k/uL Lymphocytes # 0.9 L (1.0-4.8) k/uL Monocytes # 0.4 (0-1.0) k/uL Eosinophils # 0.1 (0-0.7) k/uL Basophils # 0.0 (0-0.2) k/uL Sodium 136 L (137-145) mmol/L Potassium 4.2 (3.5-5.1) mmol/L Chloride 105 (98-107) mmol/L Carbon Dioxide 26 (22-30) mmol/L Anion Gap 5 mmol/L BUN 13 (9-20) mg/dL Creatinine 0.84 (0.66-1.25) mg/dL Est GFR (CKD-EPI)AfAm >90 (>60 ml/min/1.73 sqM) Est GFR (CKD-EPI)NonAf 87 (>60 ml/min/1.73 sqM) Glucose 106 H (74-99) mg/dL Calcium 8.6 (8.4-10.2) mg/dL Total Bilirubin 0.4 (0.2-1.3) mg/dL AST 44 (17-59) U/L ALT 33 (4-49) U/L Alkaline Phosphatase 102 (38-126) U/L C-Reactive Protein 5.9 (<10.0) mg/L Total Protein 6.3 (6.3-8.2) g/dL Albumin 3.5 (3.5-5.0) g/dL - EKG Data -: EKG Interpreted by Me EKG shows normal: sinus rhythm, axis (Normal), intervals (Normal), ST-T waves (Normal) Rate: bradycardia (Rate 57 bpm) Disposition Clinical Impression: Deep vein thrombosis (DVT) of lower extremity Disposition: HOME SELF-CARE Condition: Good Instructions (If sedation given, give patient instructions): Deep Vein Thrombosis (DC) Prescriptions: HYDROcodone/APAP 5-325MG [[place] 5-325] 1 tab PO Q4HR PRN 3 Days #18 tab PRN Reason: Pain Is patient prescribed a controlled substance at d/c from ED?: Yes Referrals: [facility] [Primary Care Provider] - 1-2 days
[2021-03-07 00:58] LABS: Basophils % (A) 0 %; Eosinophils # (A) 0.1 k/uL (0-0.7); Eosinophils % (A) 1 %; HCT 36.8 % (39.0-53.0); HGB 12.7 gm/dL (13.0-17.5); Lymphocytes # (A) 0.9 k/uL (1.0-4.8); Lymphocytes % (A) 11 %; MCH 32.6 pg (25.0-35.0); MCHC 34.4 g/dL (31.0-37.0); MCV 94.6 fL (80.0-100.0); Mean Platelet Volume 7.1; Monocytes # (A) 0.4 k/uL (0-1.0); Monocytes % (A) 5 %; Neutrophils # (A) 7.3 k/uL (1.3-7.7); Neutrophils % (A) 83 %; Platelet Count 260 k/uL (150-450); RBC 3.89 m/uL (4.30-5.90); RDW 12.5 % (11.5-15.5); WBC 8.9 k/uL (3.8-10.6)
[2021-03-07 01:17] LABS: ALT 33 U/L (4-49); AST 44 U/L (17-59); African American GFR (CKD) >90 (>60 ml/min/1.73 sqM); Albumin 3.5 g/dL (3.5-5.0); Alkaline Phosphatase 102 U/L (38-126); Anion Gap 5 mmol/L; Blood Urea Nitrogen 13 mg/dL (9-20); C Reactive Protein 5.9 mg/L (<10.0); Calcium 8.6 mg/dL (8.4-10.2); Carbon Dioxide 26 mmol/L (22-30); Chloride 105 mmol/L (98-107); Glucose 106 mg/dL (74-99); Non-African American GFR(CKD) 87 (>60 ml/min/1.73 sqM); Potassium 4.2 mmol/L (3.5-5.1); Sodium 136 mmol/L (137-145); Total Bilirubin 0.4 mg/dL (0.2-1.3); Total Protein 6.3 g/dL (6.3-8.2)
[2021-03-07 04:03] VITALS: PULSE 71; RESP 18
[2021-03-07] MEDS ORDERED: APIXABAN 5 MG TAB PO STA (05:06)
[2021-03-07 05:49] VITALS: BP 130/73
[2021-03-07] MEDS ORDERED: APIXABAN 5 MG TAB PO SCH (09:00)
== END 2021-03-07 05:16 | disposition home or self-care (01) ==
LOC: EC 22:53
DX: I82.401 Acute embolism and thrombosis of unspecified deep veins of right lower extremity (principal); Z87.891 Personal history of nicotine dependence
CPT/HCPCS: 96374 ×2; 99284 ×2; 36415; 93005; 80053; 85025; 86140; 73502; 93971; J2270

== ENCOUNTER → 2024-11-27 | Outpatient (CLI) | payer OTHER ==
[2024-11-27 16:02] LABS: Basophils # (A) 0.05 X 10*3/uL (0.00-0.10); Basophils % (A) 0.7 %; Eosinophils # (A) 0.27 X 10*3/uL (0.04-0.35); Eosinophils % (A) 3.5 %; HCT 44.3 % (39.6-50.0); HGB 14.6 g/dL (13.0-17.0); Lymphocytes # (A) 1.73 X 10*3/uL (0.90-5.00); Lymphocytes % (A) 22.7 %; MCH 31.4 pg (27.0-32.0); MCV 95.3 FL (80.0-97.0); Mean Platelet Volume 9.4 FL (9.5-12.2); Monocytes # (A) 0.54 X 10*3/uL (0.20-1.00); Monocytes % (A) 7.1 %; NRBC Per 100 WBC 0 X 10*3/uL (0.00-0.01); Neutrophils % (A) 65.7 %; Platelet Count 274 X 10*3/uL (140-440); RBC 4.65 X 10*6/uL (4.40-5.60); RDW 12.8 % (11.5-14.5); WBC 7.61 X 10*3/uL (4.50-10.00)
== END | disposition home or self-care (01) ==
LOC: LABWHC1 11:23
PROVIDERS: ATTEND Surgery
DX: Z01.818 Encounter for other preprocedural examination (principal); K40.90 Unilateral inguinal hernia, without obstruction or gangrene, not specified as recurrent
CPT/HCPCS: 36415; 85025; 86850; 86900; 86901; 93005

== ENCOUNTER 2024-12-04 08:59 | Day surgery (SDC) | payer MEDICARE, OTHER ==
[2024-11-30 08:51] VITALS: BMI 26.2
[~2024-12-04 08:59] MED LIST changes: -ACETAMINOPHEN TAB 500 MG TAB PO PRN; -DEXAMETHASONE SOD PHOSPHATE 4 MG/ML 1 ML VIAL IV ONE; -GABAPENTIN 300 MG CAP PO PRN; -MELOXICAM 7.5 MG TAB PO PRN; -MIDAZOLAM 2 MG/2 ML VIAL IV PRN; -ONDANSETRON 4 MG/2 ML VIAL IVP ONE; -ROPIVACAINE/EPI/CLONIDINE/KET 50 ML SYRINGE MISCELLANE PRN; -TRANEXAMIC ACID 1,000 MG in SODIUM CHLORIDE 0.9% 100 ML IVPB PRN; +droPERidol 5 MG/2 ML VIAL IVP ONE
[2024-12-04] MEDS: ACETAMINOPHEN TAB 500 MG TAB PO PRN (09:27)
[2024-12-04] MEDS: ONDANSETRON 4 MG/2 ML VIAL IVP ONE (09:40)
[2024-12-04] MEDS: DEXAMETHASONE SOD PHOSPHATE 4 MG/ML 1 ML VIAL IV ONE (09:40)
[2024-12-04] MEDS: LACTATED RINGERS 1,000 ML IV SCH (09:40)
[2024-12-04] MEDS: IV FLUID CONTINUATION 1,000 ML IV ONE (09:41)
[2024-12-04] MEDS: HEPARIN SODIUM,PORCINE 5,000 UNIT/ML 1 ML VIAL SQ PRN (09:42)
[2024-12-04] MEDS: FAMOTIDINE 20 MG/2 ML VIAL IV STA (10:04)
[2024-12-04] MEDS: TAMSULOSIN 0.4 MG CAP.ER.24H PO STA (10:09)
[2024-12-04] MEDS ORDERED: LIDOCAINE 1% INJ 10MG/ML (20 ML MDV) ONE (10:51)
[2024-12-04] MEDS ORDERED: HYDROmorphone (PF) 1 MG/ML ONE (10:51)
[2024-12-04] MEDS ORDERED: GLYCOPYRROLATE 0.2 MG/ML 2 ML VIAL ONE (10:51)
[2024-12-04] MEDS ORDERED: ROCURONIUM 10 MG/ML (5 ML VIAL) IV ONE (10:51)
[2024-12-04] MEDS ORDERED: fentaNYL (PF) 50 MCG/ML 2 ML AMP ONE (10:51)
[2024-12-04] MEDS ORDERED: ePHEDrine 50 MG/ML 1 ML VIAL ONE (10:51)
[2024-12-04] MEDS ORDERED: NEOSTIGMINE 1 MG/ML 10 ML VIAL ONE (10:51)
[2024-12-04] MEDS ORDERED: PROPOFOL 10 MG/ML 20 ML VIAL IV ONE (10:51)
[2024-12-04] MEDS ORDERED: SUCCINYLCHOLINE CHLORIDE 200 MG/10 ML VIAL IV ONE (10:51)
[2024-12-04] MEDS: BUPIVACAINE (PF) 0.25% 30 ML VIAL SQ ONE ×2 (11:49)
[2024-12-04] MEDS ORDERED: TAMSULOSIN 0.4 MG CAP.ER.24H PO STA (12:17)
--- NOTE | 2024-12-04 12:25 | P.OP ---
Date of Procedure: 12/04/24 Procedure(s) Performed: PREOPERATIVE DIAGNOSIS: Right inguinal hernia POSTOPERATIVE DIAGNOSIS: Right indirect inguinal hernia PROCEDURE: Laparoscopic repair da Nica assisted right inguinal hernia with mesh SURGEON: Dr. Gonzales ANESTHESIA: General EBL: 5 cc OPERATIVE PROCEDURE DETAILS: Patient was placed in the operating table in the supine position. The patient was placed under general anesthesia. The abdomen was prepped and draped in usual sterile fashion. A small curvilinear supraumbilical incision was made. The fascia was retracted anteriorly with Ajay forceps. The Veress needle was inserted. The saline drop test was normal. Insufflation took place to 15 mmHg. An 8 mm trocar was placed into the peritoneal cavity. 2 additional 8 mm trochars were placed in the right upper quadrant and left upper quadrant under visualization. The robotic arms were then brought in and docked into place. The fenestrated bipolar was used in the left arm and the laparoscopic janett was utilized in the right arm. A 30 8 mm scope was used in the up position. The peritoneal cavity was inspected. The patient had an obvious indirect hernia on the right-hand side. The peritoneum was incised in a horizontal fashion cephalad to the internal inguinal ring. Following that careful dissection of the preperitoneal space took place. This took place using both electrocautery, sharp dissection but primarily blunt dissection. Visualization of the pubic tubercle and Jacob's ligament took place medially. Full dissection took place laterally as well. The hernia sac was fully dissected. There was no visible cord lipoma penetrating through the internal inguinal ring. Once we had adequate space the 16 x 12 cm Progrip mesh was advanced into the preperitoneal space and flattened out appropriately to cover all potential hernia sites. The mesh was sutured medially to the folding edge of Jacob's ligament. This was performed using a absorbable 3-0 V-Loc suture. The peritoneal defect was then closed using a absorbable 2-0 VLok suture. The hernia sac was incorporated into the peritoneal closure to help prevent future recurrence. The pneumoperitoneum was then evacuated. The skin of all 3 sites was closed using a 4-0 Monocryl stitch. Skin glue was then applied. TYPE OF MESH USED: 16 x 12 cm ProGrip LOCATION OF MESH: Preperitoneal FIXATION: Absorbable 3 oh V-Loc PREOPERATIVE DISCUSSION ON SMOKING CESSASTION: Yes PREOPERATIVE DISCUSSION ON MORBID OBESITY: Yes PREOPERATIVE DISCUSSION ON APPROPRIATE USE OF NARCOTIC USE: Yes PREOPERATIVE EDUCATION: Multi Modal, Smoking Cessation and Weight Loss with BMI over 35. DISPOSITION: Stable to recovery room
[2024-12-04 12:33] VITALS: TEMP 97
[2024-12-04 13:52] VITALS: RESP 16
[2024-12-04 14:14] VITALS: BP 134/60; PULSE 87
[2024-12-04] MEDS ORDERED: ACETAMINOPHEN TAB 325 MG TAB PO SCH (15:00)
[2024-12-04] MEDS ORDERED: IBUPROFEN 600 MG TAB PO SCH (18:00)
== END 2024-12-04 15:11 | disposition home or self-care (01) ==
LOC: OR 08:59
PROVIDERS: ATTEND Surgery
DX: K40.90 Unilateral inguinal hernia, without obstruction or gangrene, not specified as recurrent (principal); Z86.718 Personal history of other venous thrombosis and embolism; Z79.899 Other long term (current) drug therapy; Z98.890 Other specified postprocedural states
CPT/HCPCS: 49650; S2900